=== PATIENT | male | born 1930 | race Caucasian/White ===

== ENCOUNTER 2018-12-02 15:01 | Inpatient (IN) | payer MEDICARE ==
[2018-12-02 15:27] LABS: #Basophils 0.1 thou/uL (0.0-0.2); #Eosinphils 0.2 thou/uL (0.0-0.7); #Lymphocytes 1.4 thou/uL (1.20-3.40); #Monocytes 1.1 thou/uL (0.11-0.59); #Neutrophils 8.4 thou/uL (1.40-6.50); %Basophils 0.6 % (0.0-1.0); %Eosinophils 1.4 % (0.0-10.0); %Lymphocytes 12.7 % (21.0-51.0); %Neutrophils 75.4 % (42.0-75.0); Hemoglobin 17.6 g/dL (14.0-18.0); Mean Corpuscular HGB CONC 33.6 g/dL (32.0-36.0); Mean Corpuscular Hemoglobin 32.9 pg (27.0-31.0); Mean Platelet Volume 7.3 fL (7.4-10.4); Platelet Count 184 thou/uL (130-400); Red Blood Cell (RBC) Count 5.36 mill/uL (4.70-6.10); White Blood Cell (WBC) Count 11.1 thou/uL (4.8-10.8)
--- NOTE | 2018-12-02 15:42 | RAD ---
PORTABLE CHEST: 12/02/18 HISTORY: Chest pain. Lung issa appear clear of infiltrate. No evidence of vascular congestion or edema. The heart and me diastinum unremarkable. Pacemaker leads are again noted. No change from exam of 08/10/16. IMPRESSION: No acute process. POS: [facility]
[2018-12-02] MEDS ORDERED: Aspirin Chewable 81 MG TAB ONE (15:47)
[2018-12-02] MEDS ORDERED: Nitroglycerin 2% Ointment 1 INCH/1 GM Packet ONE (15:47)
[2018-12-02 15:56] LABS: ALT (SGPT) 14 U/L (8-55); AST (SGOT) 26 U/L (5-34); Albumin 4.5 g/dL (3.4-4.8); Alkaline Phosphatase 82 U/L (40-110); Anion Gap 12 mmol/L (10-20); BUN (Urea Nitrogen) 21 mg/dL (8.4-25.7); Calc. Creatinine Clearance 0 mL/min (70-130); Calcium 9.5 mg/dL (7.8-10.44); Carbon Dioxide 25 mmol/L (23-31); Chloride 106 mmol/L (98-107); Estimated GFR-MDRD 64; Globulin 3.2 g/dL (2.4-3.5); Glucose 110 mg/dL (83-110); Potassium 4.3 mmol/L (3.5-5.1); Protein, Total 7.7 g/dL (5.8-8.1); Sodium 139 mmol/L (136-145)
[2018-12-02] MEDS ORDERED: Ondansetron ODT 4 MG TAB SL PRN (17:11)
[2018-12-02] MEDS ORDERED: Acetaminophen 325 MG TAB PO PRN ×2 (17:11→18:30)
[2018-12-02] MEDS ORDERED: Ondansetron PF 4 MG/2 ML Vial IVP PRN (17:11)
[2018-12-02 17:17] VITALS: BMI 25.2
[2018-12-02] MEDS ORDERED: Guaifenesin DM 100-10/5 ML UDCUP PO PRN (18:30)
[2018-12-02] MEDS ORDERED: Nitroglycerin 0.4 MG TAB (25 Tab Bottle) PO PRN (18:30)
[2018-12-02] MEDS ORDERED: Sodium Chloride 0.9% 1,000 ML IV SCH (18:30)
[2018-12-02] MEDS ORDERED: Senokot S 8.6-50 MG TAB PO PRN (18:30)
[2018-12-02] MEDS ORDERED: Bisacodyl 10 MG SUPP PR PRN (18:30)
[2018-12-02] MEDS ORDERED: Calcium Carbonate 500 MG ChewTAB PO PRN (18:30)
--- NOTE | 2018-12-02 19:42 | HP ---
REASON FOR ADMISSION: Chest pain. 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 He developed left upper extremity pain. He was stearing his tractor when this happened. Then, the pain started in both his arms, which was 5/10 in intensity. Also had some pain in his neck in the posterior aspect and the anterior side. No history of trauma. The patient went home as this was not feeling right. Then he called his who in turn called EMS and the patient was brought here. The pain lasted for nearly 2 hours until he got nitroglycerin paste in the emergency room. Currently, the pain has completely resolved. No complaints of cough or expectoration. No complaints of palpitations, PND, or orthopnea. 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 He follows up with Dr. Keller. Last stress test was in the past 2 years. PAST MEDICAL AND SURGICAL HISTORY: History of coronary artery disease with one stent placed on 12/01/2003, by Dr. Keller. 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 He has had a PET scan done after the removal, which was negative. Dyslipidemia, GERD. CURRENT MEDICATIONS: The patient is on: 1. Aspirin 81 mg p.o. daily. 2. Calcium 500 mg p.o. daily. 3. Flomax 0.4 mg p.o. daily. 4. Centrum Silver 1 tablet once daily. 5. Glucosamine 1500 mg p.o. daily. 6. Nexium 40 mg twice daily. 7. Atorvastatin 40 mg p.o. daily. 8. Finasteride 5 mg p.o. daily. 9. Aleve p.r.n. ALLERGIES: HYDROCODONE. PERSONAL HISTORY: Does not abuse alcohol or drugs. No history of smoking. He ambulates by himself. The patient is to his for nearly 62 years now. He has 5 great grandchildren. FAMILY HISTORY: Mother at the age of 79 years, she had some blood disorder as far as he knows. Father at the age of 88 years, he has had a stroke. CODE STATUS: Full. Power of insurance attorney is his . REVIEW OF SYSTEMS: CONSTITUTIONAL: Negative for weight loss or gain, ability to conduct usual activities. SKIN: Negative for rash, itching. EYES: Negative for double vision, pain. ENT/MOUTH: Negative for nose bleeding, neck stiffness, pain, tenderness. CARDIOVASCULAR: Negative for palpitations, dyspnea on exertion, orthopnea. RESPIRATORY: Negative for shortness of breath, wheezing, cough, hemoptysis, fever or night sweats. GASTROINTESTINAL: Negative for poor appetite, abdominal pain, heartburn, nausea , vomiting, constipation, or diarrhea. GENITOURINARY: Negative for urgency, frequency, dysuria, nocturia. MUSCULOSKELETAL: Negative for pain, swelling. NEUROLOGIC/PSYCHIATRIC: Negative for anxiety, depression. ALLERGY/IMMUNOLOGIC: Negative for skin rash, bleeding tendency. PHYSICAL EXAMINATION: GENERAL: The patient is an 87-year-old male who is currently not in any acute distress. VITAL SIGNS: Blood pressure 160/105 on arrival, pulse 100 per minute, respiratory rate 22 per minute, temperature 97.9 degrees Fahrenheit, saturating 95% on room air. NECK: Supple. No elevated JVD. HEENT: Eyes; extraocular muscles intact. Pupils reacting to light. Oral cavity, mucous membranes are moist. No exudates or congestion. CARDIOVASCULAR: S1 and S2 heard, regular rhythm. RESPIRATORY: Air entry 2+ bilateral. No rales or rhonchi. ABDOMEN: Soft. Bowel sounds heard. No tenderness, rigidity, or guarding. EXTREMITIES: No peripheral edema or calf tenderness. VASCULAR: Peripheral pulses 1+ bilateral. No ischemic ulcerations or gangrene. CENTRAL NERVOUS SYSTEM: No gross focal deficits noted. The patient is alert, awake, oriented well. PSYCHIATRIC: The patient's mood is euthymic. No hallucinations or delusions. LABORATORY DATA: White count of 11, H and H 17 and 52, platelet count 184 with 75% neutrophils, MCV is 98. Electrolytes are stable. BUN 21, creatinine 1.0, serum glucose is 110. Liver enzymes within normal limits. First set of cardiac enzymes are negative. Albumin is 4.5. Chest x-ray done shows no acute cardiopulmonary abnormalities. EKG done shows nice sinus rhythm at 98 beats per minute. There is poor R-wave progression. CLINICAL IMPRESSION AND PLAN: The patient will be under observation on telemetry for atypical chest pain, which got completely resolved after having nitroglycerin paste on. He has had prior history of stent placed in November of 2003. The patient follows up with Dr. Keller and has stress test done every 2 years. In view of above-mentioned factors, we will obtain one more set of troponin and a nuclear stress test in the morning. We will continue his aspirin with a full dose at 325 mg daily. Lipitor, Protonix, finasteride, Flomax, and CoQ10 as before per home dosages. We will continue to closely monitor him on telemetry. Job ID: [id number] MTDD
[2018-12-02 20:13] LABS: Troponin I Less than 0.010 ng/mL (< 0.028)
[2018-12-02] MEDS: Atorvastatin Calcium 20 MG TAB PO SCH (20:52)
[2018-12-02] MEDS: Cyanocobalamin (Vitamin B-12) 1,000 MCG TAB PO SCH (20:52)
[2018-12-02] MEDS ORDERED: Non-Formulary Item 1 EACH (Esomeprazole Magnesium [Nexium] 40 MG) PO SCH (21:00)
[2018-12-02] MEDS ORDERED: Famotidine 20 MG TAB PO SCH (21:00)
[2018-12-02] MEDS ORDERED: Azelastine 137 MCG/Spray 30 ML NS SCH (22:15)
[2018-12-02] MEDS: Ipratropium Bromide 0.03% Nasal Inhaler 30 ml Bottle EA NARE SCH (22:29)
[2018-12-03 04:55] LABS: Anion Gap 9 mmol/L (10-20); BUN (Urea Nitrogen) 20 mg/dL (8.4-25.7); Calc. Creatinine Clearance 53 mL/min (70-130); Calcium 8.7 mg/dL (7.8-10.44); Carbon Dioxide 26 mmol/L (23-31); Cardiac Risk 2.7 (Less than 4.5); Chloride 108 mmol/L (98-107); Cholesterol 103 mg/dl (< 200 Desired); Estimated GFR-MDRD 69; Glucose 105 mg/dL (83-110); HDL Cholesterol 38 mg/dL (>60 Neg Risk); LDL Cholesterol, Calculated 51 mg/dL; Potassium 3.8 mmol/L (3.5-5.1); Sodium 139 mmol/L (136-145); Triglycerides 69 mg/dL (Less than 150)
[2018-12-03] MEDS: Azelastine 137 MCG/Spray 30 ML NS SCH ×2 (09:00→21:27)
[2018-12-03] MEDS: Docusate 100 MG CAP PO SCH (09:00)
[2018-12-03] MEDS ORDERED: Enoxaparin Sodium 40 MG/0.4 ML SYRINGE SC SCH (09:00)
[2018-12-03] MEDS: Ipratropium Bromide 0.03% Nasal Inhaler 30 ml Bottle EA NARE SCH ×2 (09:00→21:27)
[2018-12-03] MEDS ORDERED: Diltiazem 125 MG in Sodium Chloride 0.9% 100 ML IVPB SCH (14:15)
--- NOTE | 2018-12-03 17:36 | NM ---
EXAM: Nuclear medicine cardiac perfusion examination with ejection fraction HISTORY: Chest pain TECHNIQUE: Rest images: 9 mCi technetium 99m sestamibi Stress images: 32.7 mCi of technetium 9M sestamibi; Lexiscan COMPARISON: 08/10/2016 FINDINGS: Tomographic images: No fixed or reversible perfusion defects. Gated images: Normal wall motion and ejection fraction of greater than 70%. EDV: 18 mL LHR: 0.5 TID: 0.8 IMPRESSION: No evidence of ischemia
[2018-12-03] MEDS: Ubidecarenone 50 MG CAP PO SCH (17:46)
[2018-12-03] MEDS: Aspirin 325 mg Enteric Coated Tablet PO SCH (17:46)
[2018-12-03] MEDS: Tamsulosin HCl 0.4 MG CAP PO SCH (17:46)
[2018-12-03] MEDS: Finasteride 5 MG TAB PO SCH (17:46)
[2018-12-03] MEDS ORDERED: Regadenoson 0.4 MG/5 ML SYRINGE ONE (19:53)
[2018-12-03] MEDS: Cyanocobalamin (Vitamin B-12) 1,000 MCG TAB PO SCH (21:26)
[2018-12-03] MEDS: Atorvastatin Calcium 20 MG TAB PO SCH (21:26)
[2018-12-03] MEDS ORDERED: Apixaban 5 MG TAB PO SCH (21:30)
--- NOTE | 2018-12-04 00:21 | CON ---
DATE OF CONSULTATION: HISTORY OF PRESENT ILLNESS: Adriano Ardon Junior is a pleasant 87-year-old white male who initially evaluated in November 2003 for chest discomfort. Approximately 10 years prior to that, he had GERD and underwent evaluation by Dr. Thakur and was placed on Prilosec, which seemed to help. He describes his indigestion pain as lower esophageal burning. Two weeks prior to his admission in 2003, he had epigastric dull aching sensation, which was present when he went to bed and also when he woke up at 1:30 a.m. Ultimately, he decided to go to the emergency room. However, the pain resolved by the time he arrived there. Cardiac enzymes were negative. He was then referred for further evaluation. He denied any exertional chest discomfort. On evaluation in the office, he underwent stress echo testing, exercised for 6 minutes and had evidence of posterior and lateral wall ischemia. He then underwent cardiac catheterization and had mild inferior hypokinesis with ejection fraction of 50% to 55%. There was 20% mid LAD, 20% proximal circumflex. The first obtuse marginal had 20% followed by 80% stenosis and was a large vessel. Right coronary artery had a 50% proximal stenosis. He then underwent placement of a Taxus 3.0 x 8 mm stent with reduction of the obtuse marginal lesion from 80% to 0%. In 2008, he was again admitted with chest discomfort, but a Cardiolite scan was unremarkable. In August 2014, Lexiscan Cardiolite was normal. He then was admitted in November 2014 complaining of 1 month of leg weakness. This became worse, he went to the emergency room and was found to be very bradycardic with heart rates of 30 per minute. He denied any syncope. He underwent placement of a dual-chamber pacemaker. Since that time, he has done fairly well. There have been some higher thresholds on the ventricular lead. However, he very rarely ventricularly paces. He also has had some atrial arrhythmias, they usually last less than 1 minute. 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 He stated that he was pulling very hard on the steering wheel and then began to have some left arm pain, so that he used his right arm. He then started to have pain all the way across the upper part of his chest, which he describes as a burning pain. The pain was pleuritic in nature. He ultimately stopped baling hay and his family convinced him to go to the emergency room. He was in NSR on admission EKG, but then developed atrial flutter with fast ventricular response. Nitroglycerin patch was applied and his pain improved. His pain seemed to subside even though he remained in atrial flutter. Past medical history coronary artery disease status post drug-eluting stent placement in the obtuse marginal in 2003, hypercholesterolemia, hypertension, GERD, benign prostatic hypertrophy, sinus node dysfunction. PAST SURGICAL HISTORY: Right total knee replacement, bilateral cataract surgery , hernia surgery, appendectomy, and pacemaker placement. MEDICATIONS: 1. Co Q10 200 mg daily. 2. Aspirin 81 daily. 3. Atorvastatin 20 q.p.m. 4. Calcium 5000 mcg at bedtime. 5. Colace 100 daily. 6. Nexium 40 b.i.d. 7. Proscar 5 mg daily. 8. Flomax 0.4 mg daily. ALLERGIES: HYDROCODONE. SOCIAL HISTORY: He does not smoke. He rarely drinks. 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 REVIEW OF SYSTEMS: A 10-point review of systems unremarkable. PHYSICAL EXAMINATION: VITAL SIGNS: Blood pressure 114/61, pulse of 71. HEENT: PERRL. NECK: Supple. CHEST: Clear. CARDIAC: S1 and S2 normal without any S3, S4, or murmurs. ABDOMEN: Normal bowel sounds without tenderness or organomegaly. EXTREMITIES: Revealed no clubbing, cyanosis, or edema. NEUROLOGIC: Grossly intact. SKIN: Warm and dry. LABORATORY DATA: EKG on admission revealed sinus tachycardia. He does have prolonged episode of atrial fibrillation. At times on the monitor appeared to be atrial flutter. Hemoglobin 17.6, hematocrit 52.5, white count 59996, platelets 184,000. D-dimer is 0.65. Sodium 139, potassium 3.8, chloride 108, carbon dioxide 26, BUN 20, creatinine 1.03. Cholesterol 103, triglyceride 69, HDL 38, LDL 51. Cardiac enzymes are unremarkable. Lexiscan Cardiolite test revealed no evidence of ischemia, TID 0.8. IMPRESSION: 1. Pleuritic upper chest discomfort and arm pain, which sounds musculoskeletal in nature. Cardiac enzymes are unremarkable and he has a normal Lexiscan Cardiolite test. 2. Atrial flutter and atrial fibrillation on the monitor. This apparently was not present when he first presented and I doubt that this as the cause of his symptoms. 3. Status post pacemaker placement in November 2014. 4. Status post stent placement in the first obtuse marginal in 2003. 5. Hypertension. 6. Hyperlipidemia, under good control. 7. Benign prostatic hypertrophy. 8. Gastroesophageal reflux disease. RECOMMENDATIONS: With prolonged episode of atrial arrhythmia such as this, I do feel that he should be anticoagulated. Most of what I saw on the monitor looked like atrial flutter and I will have [employer] turn on his atrial therapies tomorrow. Cardizem IV will be discontinued early in the morning. Consideration may be given to discharge tomorrow once the atrial therapies have been turned on. Certainly, if he continues to breakthrough with atrial arrhythmias, then more aggressive approach should be needed with antiarrhythmics and/or catheter ablation. Job ID: [id number] TAMMIE
[2018-12-04] MEDS: Tamsulosin HCl 0.4 MG CAP PO SCH (08:26)
[2018-12-04] MEDS: Finasteride 5 MG TAB PO SCH (08:26)
[2018-12-04] MEDS: Docusate 100 MG CAP PO SCH (08:26)
[2018-12-04] MEDS: Ipratropium Bromide 0.03% Nasal Inhaler 30 ml Bottle EA NARE SCH (08:27)
[2018-12-04] MEDS: Azelastine 137 MCG/Spray 30 ML NS SCH (08:27)
[2018-12-04] MEDS: Aspirin 325 mg Enteric Coated Tablet PO SCH (08:27)
[2018-12-04] MEDS ORDERED: Aspirin 81 mg Enteric Coated Tablet PO SCH (09:00)
[2018-12-04] MEDS ORDERED: Apixaban 5 MG TAB PO SCH (09:00)
--- NOTE | 2018-12-04 12:04 | PDOC.HOSPP ---
- Subjective Encounter Date: 12/04/18 Encounter Time: 10:00 Subjective: no chest pain, sob or palp - Objective Vital Signs & Weight: Vital Signs (12 hours) Temp Pulse Resp BP Pulse Ox 12/04/18 07:50 97.6 F 85 20 136/74 94 L 12/04/18 04:15 97.4 F L 63 20 135/65 92 L Weight Weight 154 lb 6.4 oz I&O: 12/03/18 12/04/18 12/05/18 06:59 06:59 06:59 Intake Total 1067 Output Total 550 Balance 517 Result Diagrams: 12/02/18 15:15 12/03/18 04:19 Hospitalist ROS - Medication Medications: Active Medications Generic Name Dose Route Start Last Admin Trade Name Freq PRN Reason Stop Dose Admin Acetaminophen 650 mg 12/02/18 18:30 12/02/18 22:36 Tylenol PO 650 mg Q4H PRN Administration Headache/Fever/Mild Pain (1-3) Apixaban 5 mg 12/04/18 09:00 12/04/18 08:27 Eliquis PO 5 mg BID NIKOLE Administration Aspirin 81 mg 12/04/18 09:00 12/04/18 10:31 Ecotrin PO Not Given DAILY NIKOLE Atorvastatin Calcium 20 mg 12/02/18 21:00 12/03/18 21:26 Lipitor PO 20 mg QPM NIKOLE Administration Azelastine HCl 0 ml 12/03/18 09:00 12/04/18 08:27 Azelastine NS 1 sprays BID NIKOLE Administration Coenzyme Q10 200 mg 12/03/18 17:00 12/03/18 17:46 Coenzyme Q10 PO 200 mg QPM-WM NIKOLE Administration Cyanocobalamin 5,000 mcg 12/02/18 21:00 12/03/18 21:26 Vitamin B-12 PO 5,000 mcg HS NIKOLE Administration Diltiazem HCl 30 mg 12/03/18 21:00 12/04/18 08:27 Cardizem PO 30 mg TID NIKOLE Administration Docusate Sodium 100 mg 12/03/18 09:00 12/04/18 08:26 Colace PO 100 mg DAILY NIKOLE Administration Finasteride 5 mg 12/03/18 09:00 12/04/18 08:26 Proscar PO 5 mg DAILY NIKOLE Administration Diltiazem HCl 125 mg/ Sodium 125 mls @ 5 mls/hr 12/03/18 14:15 12/03/18 14:35 Chloride IVPB 125 mls INF NIKOLE Administration 5 MG/HR Ipratropium [place] 0 ml 12/02/18 21:00 12/04/18 08:27 Atrovent 0.03% EA NARE 1 sprays BID NIKOLE Administration Pantoprazole Sodium 40 mg 12/02/18 21:00 12/04/18 08:27 Protonix PO 40 mg BID NIKOLE Administration Sodium Chloride 10 ml 12/03/18 21:00 12/04/18 08:28 Flush - Normal Saline IVF 10 ml Q12HR NIKOLE Administration Tamsulosin HCl 0.4 mg 12/03/18 09:00 12/04/18 08:26 Flomax PO 0.4 mg DAILY NIKOLE Administration - Exam General Appearance: NAD, awake alert Eye: PERRL, anicteric sclera ENT: no oropharyngeal lesions, moist mucosa Neck: supple, no JVD Heart: RRR, no murmur Respiratory: no wheezes, no rales Gastrointestinal: soft, non-tender, non-distended, normal bowel sounds Extremities: no cyanosis, no edema Neurological: cranial nerve grossly intact, no focal deficits Psychiatric: normal affect, A&O x 3 Hosp A/P (1) Atrial flutter Code(s): I48.92 - UNSPECIFIED ATRIAL FLUTTER Status: Resolved (2) Chest pain Code(s): R07.9 - CHEST PAIN, UNSPECIFIED Status: Resolved Qualifiers: Chest pain type: unspecified Qualified Code(s): R07.9 - Chest pain, unspecified (3) Hyperlipidemia Code(s): E78.5 - HYPERLIPIDEMIA, UNSPECIFIED Status: Chronic Qualifiers: Hyperlipidemia type: unspecified Qualified Code(s): E78.5 - Hyperlipidemia , unspecified (4) BPH (benign prostatic hyperplasia) Code(s): N40.0 - BENIGN PROSTATIC HYPERPLASIA WITHOUT LOWER URINRY TRACT SYMP Status: Chronic Qualifiers: Lower urinary tract symptom presence: symptoms absent Qualified Code(s): N40.0 - Benign prostatic hyperplasia without lower urinary tract symptoms - Plan hemostable is on oral cardizem tid had atrial treatment done with pacemaker stress test is -ve asymptomatic now, is amb in room dc plan per cardio
--- NOTE | 2018-12-04 14:43 | EKG ---
Test Reason : Blood Pressure : / mmHG Vent. Rate : 098 BPM Atrial Rate : 098 BPM P-R Int : 150 ms QRS Dur : 086 ms QT Int : 352 ms P-R-T Axes : 063 018 034 degrees QTc Int : 449 ms Sinus rhythm with Premature supraventricular complexes Otherwise normal ECG Confirmed by KARIME SHAW DO ([id number]), editorial project manager MARY WHITE ([id number]) on 12/04/2018 2:42:55 PM Referred By: Confirmed By:KARIME SHAW DO
--- NOTE | 2018-12-04 14:43 | EKG ---
Test Reason : Blood Pressure : / mmHG Vent. Rate : 105 BPM Atrial Rate : 105 BPM P-R Int : 150 ms QRS Dur : 082 ms QT Int : 342 ms P-R-T Axes : 064 015 028 degrees QTc Int : 452 ms Sinus tachycardia Otherwise normal ECG Confirmed by KARIME SHAW DO ([id number]), social media editor MARY WHITE ([id number]) on 12/04/2018 2:42:33 PM Referred By: Confirmed By:KARIME SHAW DO
[2018-12-04 16:05] VITALS: BP 153/91; TEMP 97.7
[2018-12-04] MEDS: Ubidecarenone 50 MG CAP PO SCH (16:35)
--- NOTE | 2018-12-06 12:54 | DIS ---
DATE OF ADMISSION: 12/03/2018 DATE OF DISCHARGE: 12/04/2018 DISCHARGE DISPOSITION: Home. PRIMARY DISCHARGE DIAGNOSES: Chest pain, resolved. Atrial flutter, resolved. SECONDARY DISCHARGE DIAGNOSES: History of pacemaker, dyslipidemia, benign prostatic hypertrophy. PROCEDURES DONE DURING HOSPITALIZATION: Chest x-ray done showed no acute process. Nuclear stress test done showed no evidence of ischemia. Ejection fraction was 70%. TID 0.8. H and H 17 and 52, platelet count 184. BUN 20, creatinine 1.0. Total cholesterol 103, triglyceride 69, LDL 51, HDL 38, TSH 2.1. Troponin x2 negative. INPATIENT CONSULT: Dr. Keller for Cardiology. DISCHARGE PLAN: The patient to follow up with his primary care physician in 1 week. He needs to follow up with Dr. Keller as advised. DISCHARGE MEDICATIONS: 1. Eliquis 5 mg twice daily. 2. Cardizem 30 mg p.o. three times daily. 3. CoQ10 of 200 mg p.o. daily. 4. Flomax 0.4 mg p.o. daily. 5. Multivitamin one tablet once daily. 6. Finasteride 5 mg p.o. daily. 7. Nexium 40 mg p.o. twice daily. 8. Colace 100 mg p.o. daily. 9. Vitamin B12 of 5000 mcg p.o. at bedtime. 10. Calcium carbonate 500 mg p.o. daily. 11. Atorvastatin 20 mg p.o. q.p.m. 12. Aspirin 81 mg p.o. daily. ALLERGIES: HYDROCODONE. BRIEF COURSE DURING HOSPITALIZATION: The patient initially came to ER with complaints of chest pain. 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 He has had three sets of troponin done which are negative. Post stress test, the patient went into atrial flutter. He has had atrial treatment done through his pacemaker, which converted him back to sinus rhythm. He was evaluated by Dr. Keller for Cardiology. Prior to discharge, he is in sinus rhythm and is ambulating well and eating well. He is cleared for discharge by Dr. Keller. Please note, the patient was placed on Eliquis and Cardizem during his stay here. Please see a face-to- face documentation for the day of discharge on [employer]. Job ID: [id number] MTDD
--- NOTE | 2018-12-06 23:10 | EKG ---
Test Reason : Blood Pressure : / mmHG Vent. Rate : 140 BPM Atrial Rate : 150 BPM P-R Int : 000 ms QRS Dur : 084 ms QT Int : 310 ms P-R-T Axes : 000 017 -02 degrees QTc Int : 473 ms Atrial fibrillation with rapid ventricular response Inferior infarct , age undetermined Abnormal ECG When compared with ECG of 02-DEC-2018 16:08, (Unconfirmed) Atrial fibrillation has replaced Sinus rhythm Confirmed by ROMA RODAS M.D. ([id number] on 12/06/2018 11:10:31 PM Referred By: JERMAINE Confirmed By:ROMA RODAS M.D.
--- NOTE | 2018-12-07 00:46 | PQF ---
[employer] Pharmacy Technician Crystal Reports [employer] Jonatan RICKETTS,CAROLINE BUSH MD [id number] [facility]-[id number] CLINICAL DOCUMENTATION CLARIFICATION FORM: POST DISCHARGE Addendum to original discharge summary date: ____ Late entry note date: __ DATE: 12/07/18 ATTN: Caroline Rodas Please exercise your independent, professional judgment in responding to the clarification form. Clinical indicators are provided on the bottom of this form for your review Can you please further specify the etiology of Chest Pain based on the clinical indicators below? Please check appropriate box(s): [ ] Musculoskeletal chest pain [ ] Atrial Fibrillation [ ] Atrial flutter [ ] Atypical Chest pain [ x ] Other diagnosis please specify_as described in H&P, progress notes and discharge summary [ ] Unable to determine In addition, please specify: Present on Admission (POA): [x ] Yes [ ] No [ ] Unable to determine For continuity of documentation, please document condition throughout progress notes and discharge summary. Thank You. CLINICAL INDICATORS - SIGNS / SYMPTOMS /LABS H and P 12/03 pg.3- The patient will be under observation on telemetry for atypical chest pain, which got completely resolved after having nitroglycerin paste on. Consult Dr. Lew pg.2- He was in NSR on admission EKG, but then develop atrial flutter with fast ventricular response Consult Dr. Lew pg.3- Pleuritic upper chest discomfort and arm pain, which sounds musculoskeletal in nature Consult Dr. Lew pg.3-Atrial flutter and atrial fibrillation on the monitor RISK FACTORS Coronary artery disease- H and P pg.1 GERD- H and P pg.1 Hypertension-Consult Dr. Lew pg.2 Hypercholesterolemia-Consult Dr. Lew pg.2 TREATMENTS: Electrocardiogram 12/02 Chest X-ray- 12/02 Stress test-12/03 Cardiology Consult- Dr Keller 12/03 Nitroglycerin- MAR 12/02 Cardizem Hcl 15mg IV- APR 25 Apixaban (Eliquis)5mg PO- APR 25 (This form is maintained as a part of the permanent medical record) 2014 [employer] All Rights Reserved Deonte [email or web address] [not provided] MTDD
== END 2018-12-04 18:21 | disposition home or self-care (01) | DRG 310 ==
LOC: ERS 15:01 → 2SW 16:13 → OBSVTOIN 12-03 14:43
PROVIDERS: ADMIT Internal Medicine; ATTEND Internal Medicine
DX: I48.92 Unspecified atrial flutter (principal); Z96.651 Presence of right artificial knee joint; I25.10 Atherosclerotic heart disease of native coronary artery without angina pectoris; E78.5 Hyperlipidemia, unspecified; N40.0 Benign prostatic hyperplasia without lower urinary tract symptoms; I10 Essential (primary) hypertension; K21.9 Gastro-esophageal reflux disease without esophagitis; I48.91 Unspecified atrial fibrillation; E78.00 Pure hypercholesterolemia, unspecified; Z95.5 Presence of coronary angioplasty implant and graft; Z90.49 Acquired absence of other specified parts of digestive tract; Z79.899 Other long term (current) drug therapy; Z88.5 Allergy status to narcotic agent; Z95.0 Presence of cardiac pacemaker
CPT/HCPCS: 36415; 71045; 78452; 80048; 80053; 80061; 84443; 84484; 85025; 85379; 93005; 93010; 93017; 94760; A9500; J1650; J2785; J3490

== ENCOUNTER 2019-05-04 07:59 | Observation (INO) | payer MEDICARE ==
[2019-05-04 08:19] LABS: #Basophils 0.1 thou/uL (0.0-0.2); #Eosinphils 0.2 thou/uL (0.0-0.7); #Lymphocytes 1.7 thou/uL (1.20-3.40); #Monocytes 0.8 thou/uL (0.11-0.59); #Neutrophils 4.4 thou/uL (1.40-6.50); %Basophils 0.9 % (0.0-1.0); %Eosinophils 3.3 % (0.0-10.0); %Lymphocytes 23.3 % (21.0-51.0); %Monocytes 11.2 % (0.0-10.0); %Neutrophils 61.3 % (42.0-75.0); Hemoglobin 15.2 g/dL (14.0-18.0); Mean Corpuscular HGB CONC 32.6 g/dL (32.0-36.0); Mean Corpuscular Volume 97.9 fL (78.0-98.0); Mean Platelet Volume 6.9 fL (7.4-10.4); Platelet Count 270 thou/uL (130-400); RBC Distribution Width 12.9 % (11.5-14.5); Red Blood Cell (RBC) Count 4.76 mill/uL (4.70-6.10); White Blood Cell (WBC) Count 7.1 thou/uL (4.8-10.8)
--- NOTE | 2019-05-04 08:25 | CT ---
EXAM: CT brain without contrast HISTORY: Right-sided weakness COMPARISON: None TECHNIQUE: Multiple contiguous axial images were obtained and a CT of the brain without contrast. FINDINGS: There are scattered hypodensities in the subcortical and periventricular white matter consi stent with small vessel ischemic disease. There is no evidence of hydrocephalus, intracranial hemorrhage, or extra-axial fluid collection. The calvarium and overlying soft tissues are unremarkable. The visualized paranasal sinuses and masto id air cells are well aerated. IMPRESSION: No evidence of acute intracranial abnormality Dr. Connolly notified of the findings at 8:22 AM on 05/04/2019
[2019-05-04 08:27] LABS: INR-International Normal Ratio 1.1; Prothrombin Time 13.8 SEC (12.0-14.7)
[2019-05-04 08:38] LABS: ALT (SGPT) 16 U/L (8-55); AST (SGOT) 18 U/L (5-34); Albumin 3.8 g/dL (3.4-4.8); Alkaline Phosphatase 77 U/L (40-110); Anion Gap 12 mmol/L (10-20); BUN (Urea Nitrogen) 18 mg/dL (8.4-25.7); Bilirubin, Total 0.7 mg/dL (0.2-1.2); Calc. Creatinine Clearance 0 mL/min (70-130); Calcium 9.5 mg/dL (7.8-10.44); Carbon Dioxide 26 mmol/L (23-31); Chloride 106 mmol/L (98-107); Estimated GFR-MDRD 63; Globulin 2.4 g/dL (2.4-3.5); Glucose 92 mg/dL (83-110); Protein, Total 6.2 g/dL (5.8-8.1); Sodium 140 mmol/L (136-145)
[2019-05-04] MEDS ORDERED: Ondansetron ODT 4 MG TAB SL PRN (09:00)
[2019-05-04] MEDS ORDERED: Acetaminophen 325 MG TAB PO PRN (09:00)
[2019-05-04] MEDS ORDERED: Ondansetron PF 4 MG/2 ML Vial IVP PRN ×2 (09:00→15:00)
[2019-05-04] MEDS ORDERED: Aspirin Chewable 81 MG TAB ONE (09:37)
--- NOTE | 2019-05-04 10:31 | CT ---
CT angiography of head and neck performed with intravenous contrast enhancement with 3-D reconstructi ons HISTORY: Stroke symptoms. Right-sided weakness. COMPARISON: Noncontrast CT of head done earlier today. FINDINGS: The lung apices are clear. The thyroid gland is normal. Vocal cord region are unremarkable. No significant jugular chain adenopathy. Parapharyngeal spaces appear clear. Angiographic portion of this examination show codominant vertebral arteries. On the right side the right common carotid and external carotid arteries are normal in appearance. In ternal carotid artery shows no evidence of any significant stenosis. 5 to 6 cm distal from its origin and becomes very tortuous and there appears be some atheromatous change in this area but no si gnificant narrowing. The left common internal and external carotid arteries show no areas of significant narrowing. CT angiography of brain performed with contrast enhancement: The vertebral basilar system appears unr emarkable. The right anterior and middle cerebral arteries are normal in appearance. No evidence of any intralum inal thrombus. 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 The A1 segment left anterior cerebral artery is very small. It is being fed by a small tributary artery from the M1 segment of the left middle cerebral artery. This is all a developmental finding not related to any acute thrombus. IMPRESSION: 1. No evidence of hemodynamically significant stenosis of either internal carotid artery by nascet cr iteria. 2. No evidence for thrombus within the middle or anterior cerebral arteries. 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
[2019-05-04 13:15] VITALS: BMI 24.0
[2019-05-04] MEDS ORDERED: Iopamidol 370 76% 100 ML VIAL ONE (14:49)
[2019-05-04] MEDS ORDERED: Azelastine 137 MCG/Spray 30 ML NS PRN (15:00)
[2019-05-04] MEDS ORDERED: Ipratropium Bromide 0.03% Nasal Inhaler 30 ml Bottle EA NARE PRN (15:00)
[2019-05-04] MEDS ORDERED: Labetalol HCl 100 MG/20 ML VIAL SLOW IVP PRN (15:00)
[2019-05-04] MEDS ORDERED: Ondansetron ODT 4 MG TAB PO PRN (15:00)
[2019-05-04] MEDS ORDERED: hydrALAZINE 20 MG/ML VIAL SLOW IVP PRN (15:00)
[2019-05-04] MEDS ORDERED: Acetaminophen 500 MG TAB PO PRN (15:00)
[2019-05-04 16:04] LABS: Troponin I Less than 0.010 ng/mL (< 0.028)
--- NOTE | 2019-05-04 16:45 | HP ---
PRIMARY CARE PROVIDER: Dr. Jose Cruz Pal. PRIMARY CASING FLUSHER: Justo Keller MD CHIEF COMPLAINT: Difficulty with speech and right arm weakness. HISTORY OF PRESENT ILLNESS: This is an 88-year-old male, who presents to [facility] Emergency Department in transport by EMS personnel after apparently experiencing difficulty with speech, facial droop, and right arm weakness, which began while eating breakfast at home. The patient states he was eating cereal with his when he suddenly had difficulty controlling the food in his mouth with his tongue and became increasingly difficulty forming words. The patient denied any headache, visual loss, bowel or bladder incontinence, or seizure activity. The patient denies any previous similar symptoms in the past. The patient denied any fall, head injury, or loss of consciousness. The patient denied associated chest pain, shortness of breath, nausea, vomiting, or diarrhea. The patient states he was recently admitted to [facility] in [place] for atrial fibrillation with rapid ventricular response requiring an IV infusion for rate control. The patient also states he underwent an interrogation of his pacemaker device during that hospital stay with normal functioning device noted. The patient denies any change to his chronic medication regimen and states the most recent medication that is new would be Eliquis for his atrial fibrillation history. The patient also states a history of pacemaker placement approximately 5 years prior to this evaluation, followed on a regular basis by Dr. Keller. The patient states his symptoms of weakness in the right upper extremity and speech deficit lasted approximately 15 minutes. The patient states they had resolved by the time he was placed in the EMS transport. However, he had a similar episode recur in the emergency room according to the . The patient does take aspirin 81 mg daily in addition to the Eliquis. In the emergency room, the patient underwent general evaluation including CT of the brain showing no acute process. CT angiogram of the head and neck was also unremarkable. The patient received 243 mg of aspirin and was referred to the Hospitalist Service. PAST MEDICAL HISTORY: 1. Atrial fibrillation with variable rate, status post pacemaker placement on chronic anticoagulation with Eliquis. 2. Hypertension. 3. Hyperlipidemia. 4. Coronary artery disease. 5. Benign prostatic hyperplasia. PAST SURGICAL HISTORY: 1. Status post cataract removal. 2. Status post appendectomy. 3. Status post hernia repair. 4. Status post pacemaker placement. 5. Status post cardiac stent placement. 6. Status post right total knee arthroplasty. 7. Status post melanoma removal of the buttock. CURRENT MEDICATIONS: 1. Enteric-coated aspirin 81 mg p.o. daily. 2. Lipitor 20 mg p.o. daily. 3. Calcium carbonate 500 mg p.o. daily. 4. Vitamin B12 of 5000 mcg p.o. daily. 5. Nexium 40 mg p.o. daily. 6. Proscar 5 mg p.o. daily. 7. Flonase one spray in each naris daily. 8. Multivitamin one tab p.o. daily. 9. Flomax 0.4 mg p.o. daily. 10. Coenzyme Q10 of 200 mg p.o. daily. 11. Eliquis 5 mg p.o. b.i.d. ALLERGIES: TO HYDROCODONE. FAMILY HISTORY: Mother at the age of 79. Father at age of 88 with history of CVA. SOCIAL HISTORY: , residing in the [place], [place] area. No current alcohol, tobacco, or illicit drug use. Functional of all activities of daily living. 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 REVIEW OF SYSTEMS: CONSTITUTIONAL: Negative for weight loss or gain, ability to conduct usual activities. SKIN: Negative for rash, itching. EYES: Negative for double vision, pain. ENT/MOUTH: Negative for nose bleeding, neck stiffness, pain, tenderness. CARDIOVASCULAR: Negative for palpitations, dyspnea on exertion, orthopnea. RESPIRATORY: Negative for shortness of breath, wheezing, cough, hemoptysis, fever or night sweats. GASTROINTESTINAL: Negative for poor appetite, abdominal pain, heartburn, nausea, vomiting, constipation, or diarrhea. GENITOURINARY: Negative for urgency, frequency, dysuria, nocturia. MUSCULOSKELETAL: Negative for pain, swelling. NEUROLOGIC/PSYCHIATRIC: Negative for anxiety, depression. ALLERGY/IMMUNOLOGIC: Negative for skin rash, bleeding tendency. Otherwise negative except as stated per HPI. PHYSICAL EXAMINATION: VITAL SIGNS: On admission, blood pressure 147/71, pulse 65, respiratory rate 18, temperature 97.6 degrees Fahrenheit, and O2 saturation 97% on room air. GENERAL APPEARANCE: This is an 88-year-old male, alert and oriented x3, pleasant, responsive, in no acute distress. HEENT: Pupils are equal, round, and reactive to light and accommodation. Extraocular muscles are intact. No scleral icterus. No conjunctival injection. Nares patent. OP is clear. Teeth in good repair. NECK: Supple. No cervical adenopathy. No thyromegaly. No carotid bruits. No JVD noted. Cervical spine with full active and passive range of motion. No meningeal signs noted. CHEST: Lungs are clear to auscultation bilaterally. CARDIOVASCULAR: S1 and S2 with irregular rate and rhythm. Left upper chest wall with pacemaker device in place. ABDOMEN: Rounded, soft, nontender, and nondistended. Bowel sounds are positive in all 4 quadrants. There is no hepatosplenomegaly. No abdominal bruits. No rebound or guarding appreciated. EXTREMITIES: Warm and dry with fair turgor. No clubbing, cyanosis, or asymmetric edema appreciated. Pulses are palpable distally at the dorsalis pedis, posterior tibial, and popliteal arteries bilaterally. Capillary refill less than 2 seconds. NEUROLOGIC: Cranial nerves II through XII are grossly intact. No focal or lateralizing signs appreciated. PERTINENT LABORATORY AND X-RAY FINDINGS: Complete metabolic profile within normal limits. Troponin I negative x1. Total CK of 53. TSH 2.2 on 12/04/2018. CBC within normal limits. PT 13.8, INR 1.1, and PTT 30.0. CT of the brain without contrast dated 05/04/2019, showed no acute intracranial process. CT angiogram of the head and neck dated 05/04/2019, showed no hemodynamically significant stenosis. No thrombus noted. EKG dated 05/04/2019, by my interpretation shows sinus arrhythmia, heart rates in the 70s. Normal R-wave progression noted in the precordial leads. Normal axis. No acute ST-T wave changes noted. ASSESSMENT AND PLAN: 1. Transient ischemic attack. The patient will be observed on the stroke unit. Continue general stroke protocol. Aspirin 325 mg daily. Check fasting lipid profile in the a.m. Check 2D transthoracic echocardiogram in the a.m. Check MRI of the brain. Consult Neurology Service for any further recommendations. 2. Atrial dysrhythmia, status post pacemaker placement. We will interrogate pacemaker device to assess functional device. Continue telemetry monitoring. Consider consultation with Cardiology Service. 3. Chronic anticoagulation. Continue Eliquis 5 mg p.o. b.i.d. 4. Hypertension. Resume home blood pressure regimen and monitor clinical response. 5. Hyperlipidemia. Check fasting lipid profile in the a.m. Continue Lipitor 40 mg p.o. at bedtime. 6. Code status is full. Surrogate medical decision maker is the patient's spouse. Job ID: [id number]
[2019-05-04 18:03] LABS: Troponin I Less than 0.010 ng/mL (< 0.028)
[2019-05-04] MEDS: Famotidine 20 MG TAB PO SCH (20:37)
[2019-05-04] MEDS: Apixaban 5 MG TAB PO SCH (20:37)
[2019-05-04] MEDS ORDERED: Atorvastatin Calcium 40 MG TAB PO SCH (21:00)
[2019-05-04] MEDS ORDERED: FlunisoLIDE 0.025% Nasal Spray 25 ml Bottle EA NARE SCH (21:00)
[2019-05-05 05:29] LABS: Cardiac Risk 3.2 (Less than 4.5)
[2019-05-05 05:30] LABS: Hemoglobin 14.7 g/dL (14.0-18.0); Platelet Count 259 thou/uL (130-400)
[2019-05-05] MEDS ORDERED: GLUC SU PO SCH (09:00)
[2019-05-05] MEDS ORDERED: Finasteride 5 MG TAB PO SCH (09:00)
[2019-05-05] MEDS ORDERED: Fluticasone Propionate Nasal Spray 16 gm Bottle NASAL SCH (09:00)
[2019-05-05] MEDS ORDERED: Calcium Carbonate 500 MG TAB PO SCH (09:00)
[2019-05-05] MEDS ORDERED: Atorvastatin Calcium 20 MG TAB PO SCH (09:00)
[2019-05-05] MEDS ORDERED: Cyanocobalamin (Vitamin B-12) 1,000 MCG TAB PO SCH (09:00)
[2019-05-05] MEDS ORDERED: [UNRECOGNIZED DRUG - OTHER] PO SCH (09:00)
[2019-05-05] MEDS ORDERED: CHONDRO SU A PO SCH (09:00)
[2019-05-05] MEDS ORDERED: Multivitamin W/ Minerals 1 TAB PO SCH (09:00)
[2019-05-05] MEDS ORDERED: Aspirin 81 mg Enteric Coated Tablet PO SCH ×3 (09:00→10:30)
[2019-05-05] MEDS ORDERED: VIT C PO SCH (09:00)
[2019-05-05] MEDS ORDERED: Docusate 100 MG CAP PO SCH (09:00)
[2019-05-05] MEDS ORDERED: Tamsulosin HCl 0.4 MG CAP PO SCH (09:00)
[2019-05-05] MEDS ORDERED: Aspirin 325 mg Enteric Coated Tablet PO SCH (09:00)
[2019-05-05] MEDS ORDERED: Ubidecarenone 50 MG CAP PO SCH (09:00)
[2019-05-05] MEDS: Apixaban 5 MG TAB PO SCH (09:05)
[2019-05-05] MEDS: Famotidine 20 MG TAB PO SCH (09:06)
[2019-05-05 11:48] VITALS: TEMP 97.5
--- NOTE | 2019-05-05 15:15 | MRI ---
MRI BRAIN WITHOUT CONTRAST: Date: 05/05/2019 HISTORY: TIA. FINDINGS: Correlation is made with the previous day's CT scan. No restricted diffusion is seen. There are changes of cortical atrophy and chronic small vessel ische boni disease. The ventricular size is appropriate and the basilar cisterns are patent. No evidence of acute infarct, hemorrhage, midline shift, or abnormal extra-axial fluid collections are seen. Scatter ed tiny foci of hemosiderin deposition are seen on the gradient echo sequences consistent with old he morrhage. Visualized paranasal sinuses and mastoid air cells are well aerated. IMPRESSION: Chronic changes. No evidence of acute intracranial process. POS: [facility]
[2019-05-05 15:48] VITALS: BP 137/78
--- NOTE | 2019-05-05 16:27 | CON ---
DATE OF CONSULTATION: 05/05/2019 CONSULTING PHYSICIAN: Hospitalist service. IMPRESSION: 1. Transient ischemic attack with transient right-sided weakness. 2. Maximum medical therapy. 3. History of atrial fibrillation. PLAN: 1. Continue his current treatment plan with Eliquis, aspirin, and Lipitor. 2. Patient to be discharged home at your discretion. HISTORY OF PRESENT ILLNESS: Mr. Ardon is an 88-year-old gentleman, who presented with acute onset of right-sided weakness and some slurred speech. The symptoms lasted about 15 minutes. He had been compliant with his medication. His CT of the brain was negative for any type of hemorrhage. There was some small vessel ischemic changes noted. His CT angiogram did not show any large vessel stenosis or occlusion. Followup MRI did not reveal any evidence of an acute ischemic event. His echocardiogram is pending. His cholesterol ratio is 3.2. He is without any pertinent complaints at this point. PAST MEDICAL HISTORY: Atrial fib, hypertension, hyperlipidemia, coronary artery disease. PAST SURGICAL SURGERY: Pacemaker implantation. ALLERGIES: HYDROCODONE. MEDICATION: List reviewed. FAMILY HISTORY: Noncontributory. REVIEW OF SYSTEMS: Ten-system review of systems is otherwise negative. PHYSICAL EXAMINATION: VITAL SIGNS: Blood pressure 139/68, pulse 66, respirations 13, temperature 97.5 HEENT: Pupils equal and reactive. Conjunctivae are clear. Oropharynx clear. NECK: Supple. EXTREMITIES: No cyanosis or edema. NEUROLOGIC: He is alert and appropriate. His speech is fluent and clear. Cranial nerves are intact. Motor exam showed equal certified medical biller strength. There was no tremor or dysmetria. He can walk independently. No abnormal movements were seen. LABORATORY DATA: EKG shows a paced rhythm. SUMMARY: Thin, elderly gentleman who has evidence of microvascular disease as well as some subclinical petechial hemorrhage on MRI. He is currently on maximum medical treatment for stroke prevention. I do not see any other option. I think he is stable for discharge. Job ID: [id number]
[2019-05-05] MEDS ORDERED: Apixaban 5 MG TAB PO SCH ×2 (17:30→21:00)
--- NOTE | 2019-05-05 19:20 | DIS ---
DATE OF ADMISSION: 05/04/2019 DATE OF DISCHARGE: 05/05/2019 DISCHARGE DIAGNOSES: 1. Transient ischemic attack. 2. Atrial fibrillation. 3. Hypertension. 4. Hyperlipidemia. HOSPITAL COURSE: The patient is an 88-year-old man, who initially presents to the hospital with complaints of difficulty speech and right-sided arm weakness. At this time, he underwent a stroke evaluation including CTA and a CT brain. CT head was negative for any bleeds. CTA did not show any acute thrombus. At this time, he was already on Eliquis and on aspirin. This was continued. He underwent a brain MRI and a Neurology consultation. Brain MRI indicated chronic changes, no evidence of acute intracranial process. However, he did have some scattered foci of hemosiderin deposits, consistent with old hemorrhage. Per Neurology's recommendations, continued to use of 81 mg of aspirin, Lipitor, and Eliquis. The patient at this time will be discharged home. He did have an event of slurred speech while he was in the hospital. However, this resolved very quickly. He also has old calcifications per Neurology. PHYSICAL EXAMINATION: VITAL SIGNS: Temperature of 97.5, pulse 79, respirations 14, oxygen saturation 95% on room air, blood pressure 137/78. GENERAL: He is awake, alert, and oriented x3. Does not appear in distress. CV: S1 and S2 present. No murmurs, rubs, or gallops. MEDICATIONS: He is going to be on; 1. Aspirin 81 mg daily. 2. Calcium 500 mg daily. 3. Colace 100 mg daily. 4. Finasteride 5 mg daily. 5. Nexium 40 mg daily. 6. Atorvastatin 20 mg daily. 7. Flomax 0.4 mg daily. 8. Nasal spray as needed. Job ID: [id number]
[2019-05-06] MEDS ORDERED: Apixaban 5 MG TAB PO SCH (09:00)
== END 2019-05-05 18:40 | disposition home or self-care (01) ==
LOC: ERS 07:59 → 2SE 09:47
PROVIDERS: ADMIT Family Medicine; ATTEND Family Medicine
DX: G45.9 Transient cerebral ischemic attack, unspecified (principal); I48.91 Unspecified atrial fibrillation; I10 Essential (primary) hypertension; E78.5 Hyperlipidemia, unspecified; I25.10 Atherosclerotic heart disease of native coronary artery without angina pectoris; N40.0 Benign prostatic hyperplasia without lower urinary tract symptoms; Z79.01 Long term (current) use of anticoagulants; Z79.51 Long term (current) use of inhaled steroids; Z79.82 Long term (current) use of aspirin; Z79.899 Other long term (current) drug therapy; Z85.820 Personal history of malignant melanoma of skin; Z88.5 Allergy status to narcotic agent; Z95.0 Presence of cardiac pacemaker; Z95.5 Presence of coronary angioplasty implant and graft
CPT/HCPCS: 36415; 36416; 70450; 70496; 70498; 70551; 80053; 80061; 82550; 82565; 84443; 84484; 85014; 85018; 85025; 85049; 85610; 85730; 93005; 93306; 94760; G0378; Q9967

== ENCOUNTER 2020-10-16 18:49 | Inpatient (IN) | payer MEDICARE ==
[2020-10-16 19:49] LABS: #Eosinphils 0.2 thou/uL (0.0-0.7); #Lymphocytes 1.6 thou/uL (1.20-3.40); #Monocytes 0.9 thou/uL (0.11-0.59); #Neutrophils 5.9 thou/uL (1.40-6.50); %Basophils 0.6 % (0.0-1.0); %Eosinophils 2.3 % (0.0-10.0); %Lymphocytes 18.8 % (21.0-51.0); %Monocytes 10.3 % (0.0-10.0); %Neutrophils 68.1 % (42.0-75.0); Hemoglobin 15.2 g/dL (14.0-18.0); Mean Corpuscular HGB CONC 33.9 g/dL (32.0-36.0); Mean Corpuscular Hemoglobin 33.1 pg (27.0-31.0); Mean Corpuscular Volume 97.5 fL (78.0-98.0); Mean Platelet Volume 7.4 fL (7.4-10.4); Platelet Count 191 thou/uL (130-400); RBC Distribution Width 12.2 % (11.5-14.5); White Blood Cell (WBC) Count 8.6 thou/uL (4.8-10.8)
[2020-10-16 20:08] LABS: ALT (SGPT) 15 U/L (8-55); AST (SGOT) 16 U/L (5-34); Alkaline Phosphatase 85 U/L (40-110); Anion Gap 11 mmol/L (10-20); BUN (Urea Nitrogen) 21 mg/dL (8.4-25.7); Bilirubin, Total 0.5 mg/dL (0.2-1.2); CK (CPK) 90 U/L (30-200); Calc. Creatinine Clearance 0 mL/min (70-130); Calcium 9.3 mg/dL (7.8-10.44); Carbon Dioxide 23 mmol/L (23-31); Chloride 109 mmol/L (98-107); Globulin 2.3 g/dL (2.4-3.5); Glucose 113 mg/dL (83-110); Lipase 36 U/L (8-78); Potassium 4.2 mmol/L (3.5-5.1); Protein, Total 6.3 g/dL (5.8-8.1); Sodium 139 mmol/L (136-145)
[2020-10-16 22:21] LABS: Troponin I Less than 0.010 ng/mL (< 0.028)
[2020-10-16] MEDS ORDERED: Nitroglycerin 2% Ointment 1 INCH/1 GM Packet ONE (23:28)
[2020-10-16] MEDS ORDERED: Aspirin 325 MG TAB ONE (23:28)
[2020-10-16] MEDS ORDERED: HYDROcodone/Acetaminophen 5/325 mg Tablet PO PRN (23:46)
[2020-10-16] MEDS ORDERED: Acetaminophen 325 MG TAB PO PRN (23:46)
[2020-10-17 01:26] LABS: Troponin I Less than 0.010 ng/mL (< 0.028)
[2020-10-17 03:34] LABS: SARS-CoV-2 NAA Rapid Test Not Detected (NotDetected)
[2020-10-17 04:35] VITALS: BMI 22.7
[2020-10-17 05:55] LABS: Hemoglobin 13.9 g/dL (14.0-18.0); Mean Corpuscular Hemoglobin 32.3 pg (27.0-31.0); Mean Corpuscular Volume 97.9 fL (78.0-98.0); Mean Platelet Volume 7.6 fL (7.4-10.4); Platelet Count 165 thou/uL (130-400); RBC Distribution Width 12.3 % (11.5-14.5); Red Blood Cell (RBC) Count 4.31 mill/uL (4.70-6.10); White Blood Cell (WBC) Count 7.4 thou/uL (4.8-10.8)
[2020-10-17 06:07] LABS: Troponin I Less than 0.010 ng/mL (< 0.028)
[2020-10-17 06:14] LABS: ALT (SGPT) 13 U/L (8-55); AST (SGOT) 14 U/L (5-34); Albumin 3.5 g/dL (3.4-4.8); Alkaline Phosphatase 76 U/L (40-110); Anion Gap 10 mmol/L (10-20); BUN (Urea Nitrogen) 18 mg/dL (8.4-25.7); Bilirubin, Total 0.6 mg/dL (0.2-1.2); Calc. Creatinine Clearance 49 mL/min (70-130); Calcium 9.1 mg/dL (7.8-10.44); Carbon Dioxide 23 mmol/L (23-31); Cardiac Risk 2.3 (Less than 4.5); Chloride 111 mmol/L (98-107); Cholesterol 87 mg/dl (< 200 Desired); Globulin 2.2 g/dL (2.4-3.5); Glucose 97 mg/dL (83-110); HDL Cholesterol 38 mg/dL (>60 Neg Risk); LDL Cholesterol, Calculated 39 mg/dL; Protein, Total 5.7 g/dL (5.8-8.1); Sodium 140 mmol/L (136-145); Triglycerides 52 mg/dL (Less than 150)
[2020-10-17 06:24] LABS: Band 1 % (5-11); Eosinophils 5 % (0-10); Lymphocytes 26 % (21-51); MDiff Complete? YES; Monocytes 10 % (0-10); Neutrophil 56 % (42-75); Reactive Lymphocytes 1 % (0-10)
[2020-10-17] MEDS: Nitroglycerin 2% Ointment 1 INCH/1 GM Packet TOP SCH ×3 (06:31→20:16)
[2020-10-17] MEDS: Atorvastatin Calcium 20 MG TAB PO SCH (08:34)
[2020-10-17] MEDS: Tamsulosin HCl 0.4 MG CAP PO SCH (08:34)
[2020-10-17] MEDS: Finasteride 5 MG TAB PO SCH (08:34)
[2020-10-17] MEDS: Aspirin Chewable 81 MG TAB PO SCH (08:34)
[2020-10-17] MEDS: Aspirin 81 mg Enteric Coated Tablet PO SCH (08:34)
[2020-10-17] MEDS: Clopidogrel Bisulfate 75 MG TAB PO SCH (08:35)
[2020-10-17] MEDS: Famotidine 20 MG TAB PO SCH (08:36)
[2020-10-17] MEDS ORDERED: Apixaban 5 MG TAB PO SCH (09:00)
[2020-10-17] MEDS ORDERED: Communication Order-Pharmacy FS SCH (17:45)
[2020-10-17] MEDS: Melatonin 3 MG TAB PO PRN (21:11)
[2020-10-18 05:07] LABS: Cardiac Risk 2.2 (Less than 4.5)
[2020-10-18] MEDS: Nitroglycerin 2% Ointment 1 INCH/1 GM Packet TOP SCH ×2 (05:56→14:57)
[2020-10-18] MEDS: Clopidogrel Bisulfate 75 MG TAB PO SCH (08:25)
[2020-10-18] MEDS: Aspirin 81 mg Enteric Coated Tablet PO SCH (08:25)
[2020-10-18] MEDS: Famotidine 20 MG TAB PO SCH (08:27)
[2020-10-18] MEDS: Tamsulosin HCl 0.4 MG CAP PO SCH (08:27)
[2020-10-18] MEDS: Atorvastatin Calcium 20 MG TAB PO SCH (08:27)
[2020-10-18] MEDS: Aspirin Chewable 81 MG TAB PO SCH (08:27)
[2020-10-18] MEDS: Finasteride 5 MG TAB PO SCH (08:27)
[2020-10-18] MEDS: Gabapentin 300 MG CAP PO SCH (21:13)
[2020-10-18] MEDS: Melatonin 3 MG TAB PO PRN (21:13)
[2020-10-18] MEDS ORDERED: Zonisamide 100 MG CAP PO SCH (21:30)
[2020-10-19] MEDS ORDERED: Sodium Chloride 0.9% 1,000 ML IV SCH ×2 (06:00→10:37)
[2020-10-19] MEDS ORDERED: Heparin 0 ML ONE (07:02)
[2020-10-19] MEDS ORDERED: Heparin 10,000 UNITS/ 10 ML VIAL ONE ×2 (07:02→09:55)
[2020-10-19] MEDS: Finasteride 5 MG TAB PO SCH (07:03)
[2020-10-19] MEDS: Gabapentin 300 MG CAP PO SCH ×3 (07:03→18:12)
[2020-10-19] MEDS: Aspirin 81 mg Enteric Coated Tablet PO SCH (07:03)
[2020-10-19] MEDS: Atorvastatin Calcium 20 MG TAB PO SCH (07:03)
[2020-10-19] MEDS: Tamsulosin HCl 0.4 MG CAP PO SCH (07:03)
[2020-10-19] MEDS ORDERED: Midazolam HCl 2 mg/2 ml Vial ONE (08:00)
[2020-10-19] MEDS ORDERED: Iopamidol 370 76% 100 ML VIAL ONE (08:54)
[2020-10-19] MEDS ORDERED: Iopamidol 370 76% 50 ML VIAL FS ONE (08:54)
[2020-10-19] MEDS ORDERED: Zonisamide 100 MG CAP PO SCH ×2 (09:00)
[2020-10-19] MEDS ORDERED: Fentanyl 100 MCG/2 ML VIAL ONE (09:40)
[2020-10-19] MEDS ORDERED: Protamine Sulfate 50 MG/5 ML VIAL ONE (10:17)
[2020-10-19] MEDS ORDERED: Nitroglycerin 0.4 MG TAB (25 Tab Bottle) SL PRN (10:35)
[2020-10-19] MEDS ORDERED: Sodium Chloride 0.9% 200 ML IV PRN (10:35)
[2020-10-19] MEDS ORDERED: Acetaminophen/Codeine 30-300mg Tablet PO PRN ×2 (10:35)
[2020-10-19 13:41] VITALS: TEMP 97.7
[2020-10-19] MEDS ORDERED: Tamsulosin HCl 0.4 MG CAP PO SCH (14:00)
[2020-10-19 15:36] VITALS: BP 127/62
== END 2020-10-19 18:05 | disposition home or self-care (01) | DRG 287 ==
LOC: ERS 18:49 → 2NO 10-17 00:12 → OBSVTOIN 10-19 08:24
PROVIDERS: ADMIT Internal Medicine; ATTEND Internal Medicine
PROC: 4A023N7 Measurement of Cardiac Sampling and Pressure, Left Heart, Percutaneous Approach (ICD-10-PCS; principal; 2020-10-19)
PROC: B2111ZZ Fluoroscopy of Multiple Coronary Arteries using Low Osmolar Contrast (ICD-10-PCS; 2020-10-19)
PROC: B2151ZZ Fluoroscopy of Left Heart using Low Osmolar Contrast (ICD-10-PCS; 2020-10-19)
PROC: 4A033BC Measurement of Arterial Pressure, Coronary, Percutaneous Approach (ICD-10-PCS; 2020-10-19)
DX: R07.89 Other chest pain (principal); I48.92 Unspecified atrial flutter; I25.10 Atherosclerotic heart disease of native coronary artery without angina pectoris; E78.5 Hyperlipidemia, unspecified; N40.0 Benign prostatic hyperplasia without lower urinary tract symptoms; K21.9 Gastro-esophageal reflux disease without esophagitis; I48.91 Unspecified atrial fibrillation; Z96.651 Presence of right artificial knee joint; I12.9 Hypertensive chronic kidney disease with stage 1 through stage 4 chronic kidney disease, or unspecified chronic kidney disease; N18.2 Chronic kidney disease, stage 2 (mild); Z20.822 Contact with and (suspected) exposure to COVID-19; Z95.5 Presence of coronary angioplasty implant and graft; Z88.5 Allergy status to narcotic agent; Z79.01 Long term (current) use of anticoagulants; Z79.82 Long term (current) use of aspirin; Z79.51 Long term (current) use of inhaled steroids; Z79.52 Long term (current) use of systemic steroids; Z79.899 Other long term (current) drug therapy; Z90.49 Acquired absence of other specified parts of digestive tract; Z85.820 Personal history of malignant melanoma of skin; Z82.3 Family history of stroke; Z95.0 Presence of cardiac pacemaker
CPT/HCPCS: 36415; 71045; 78452; 80053; 80061; 82550; 83690; 83880; 84484; 85007; 85025; 85027; 85347; 93005; 93017; 93458; 99152; 99153; A9500; G0378; J1644; J2250; J2720; J3010; J7050; Q9967; U0002